=== PATIENT | male | born 1975 | race African-American/Black ===

== ENCOUNTER 2024-09-06 20:45 | Emergency (ER) | payer SELFPAY ==
[~2024-09-06] VITALS: Ht 180.3 cm; Wt 78.0 kg
[2024-09-06 21:59] VITALS: O2SAT 100
[2024-09-06] MEDS ORDERED: IBUP-2029 PO (23:10)
[2024-09-07] MEDS: IBUPROFEN 600MG TABLET PO NR (00:12)
[2024-09-07 00:30] VITALS: BP 112/66; PULSE 63; RESP 16; TEMP 36.72516; O2SAT 98
== END 2024-09-07 00:46 | disposition home or self-care (01) ==
LOC: ER 20:45
DX: S93.602A Unspecified sprain of left foot, initial encounter (principal); S93.402A Sprain of unspecified ligament of left ankle, initial encounter; X58.XXXA Exposure to other specified factors, initial encounter; Y93.89 Activity, other specified; Y92.89 Other specified places as the place of occurrence of the external cause; Y99.8 Other external cause status
CPT/HCPCS: 73610; 73630; 99284; Z7610